=== PATIENT | male | born 1995 | race Two or more races ===

== ENCOUNTER 2018-03-20 04:27 | Emergency (ER) | payer BC ==
[~2018-03-20] VITALS: Ht 185.4 cm; Wt 90.7 kg
[2018-03-20] MEDS ORDERED: LORazepam Inj 2mg/ml 1ml IV ONE (05:00)
--- NOTE | 2018-03-20 05:29 | Emergency Room Report ---
History of Present Illness General Chief Complaint: Overdose Source: Patient Present Illness HPI 22-year-old male with history of HIV reports feeling shortness of breath and restlessness since using methamphetamines last night He denies use of any other drugs, and denies traumatic injuries Allergies: Coded Allergies: No Known Allergies (Unverified , 03/20/18) Patient History Past Medical History: see triage record Reviewed Nursing Documentation: PMH: Agreed; PSxH: Agreed Review of Systems All Other Systems: negative except mentioned in HPI Physical Exam Vital Signs Date Time Temp Pulse Resp B/P (MAP) Pulse Ox O2 Delivery O2 Flow Rate FiO2 03/20/18 04:28 98.3 144 18 148/68 98 Room Air 98.2 Sp02 EP Interpretation: reviewed, normal - Pulse ox normal, but patient tachycardic General Appearance: no apparent distress, alert, mild distress Head: normocephalic Eyes: bilateral eye normal inspection, bilateral eye PERRL, bilateral eye EOMI ENT: normal ENT inspection, hearing grossly normal, normal pharynx, no angioedema, normal voice, moist mucus membranes Neck: normal inspection, full range of motion, supple, supple/symm/no masses Respiratory: chest non-tender, lungs clear, normal breath sounds, chest symmetrical, palpation of chest normal Cardiovascular #1: normal peripheral pulses, regular rate, rhythm, tachycardia Cardiovascular #2: 2+ radial (R), 2+ radial (L) Gastrointestinal: normal inspection, non tender, soft, no mass, no guarding, no rebound Rectal: deferred Genitourinary: normal inspection, no CVA tenderness Musculoskeletal: back normal, gait/station normal, normal range of motion, non- tender, no calf tenderness Neurologic: alert, responsive, river driver III-XII nml as tested, motor strength/tone normal, sensory intact, speech normal Psychiatric: mood/affect normal - Agitated, anxious Skin: normal color, no rash, warm/dry, normal turgor Lymphatic: no adenopathy Medical Decision Making Diagnostic Impression: Primary Impression: Drug overdose ER Course 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 His CPK is over 5000, but he has normal renal function and although still high, is AAOx4 and cooperative. He received 2mg IV ativan, followed by 1 L of NSS, will also get a 2nd dose of 1mg IV ativan, another liter of NSS, and be dc'd home. EKG Diagnostic Results EKG Time: 04:50 EP Interpretation: No ST-T segment changes no T-wave inversions Rate: tachycardiac Rhythm: NSR ST Segments: no acute changes Rhythm Strip Diag. Results Rhythm Strip Time: 05:28 Rate: 114 Rhythm: NSR, no PVC's, no ectopy Last Vital Signs Date Time Temp Pulse Resp B/P (MAP) Pulse Ox O2 Delivery O2 Flow Rate FiO2 18 04:28 98.3 144 18 148/68 98 Room Air 98.2 Disposition: HOME, SELF-CARE Condition: Stable Referrals: NOT CHOSEN IPA/,REFERRING (PCP) FATOUMATA GIFFORD M.D March 20, 2018 05:29
[2018-03-20 06:02] LABS: BASOPHILS % (AUTO) 0.7 % (0.0-2.0); EOSINOPHILS % (AUTO) 0.1 % (0.0-3.0); HEMATOCRIT 44.7 % (42.0-52.0); LYMPHOCYTES % (AUTO) 19.7 % (20.0-45.0); MEAN CORPUSCULAR VOLUME 87 FL (80-99); MONOCYTES % (AUTO) 6.6 % (1.0-10.0); NEUTROPHILS % (AUTO) 72.8 % (45.0-75.0); PLATELET COUNT 240 K/UL (150-450); RED BLOOD COUNT 5.16 M/UL (4.70-6.10); RED CELL DISTRIBUTION WIDTH 9.8 % (11.6-14.8); WHITE BLOOD COUNT 10.1 K/UL (4.8-10.8)
[2018-03-20 06:07] LABS: ANION GAP 21 mmol/L (5-15); BLOOD UREA NITROGEN 26 mg/dL (7-18); CALCIUM 9.6 MG/DL (8.5-10.1); CARBON DIOXIDE 19 MMOL/L (21-32); CHLORIDE 99 MMOL/L (98-107); CREATININE 1.2 MG/DL (0.55-1.30); POTASSIUM 3.7 MMOL/L (3.5-5.1); SODIUM 139 MMOL/L (136-145)
[2018-03-20 06:18] VITALS: BP 134/66
[2018-03-20 06:20] LABS: ALANINE AMINOTRANSFERASE 117 U/L (12-78); ALBUMIN 4.6 G/DL (3.4-5.0); ALKALINE PHOSPHATASE 91 U/L (46-116); ASPARTATE AMINO TRANSFERASE 189 U/L (15-37); BILIRUBIN,TOTAL 1.2 MG/DL (0.2-1.0); CREATINE KINASE 5717 U/L (26-308)
[2018-03-20 06:22] LABS: BILIRUBIN,DIRECT 0.2 MG/DL (0.0-0.3)
[2018-03-20] MEDS ORDERED: LORazepam Inj 2mg/ml 1ml IV SCH (06:30)
[2018-03-20 08:54] VITALS: BP 132/74
[2018-03-20 10:54] VITALS: BP 124/70
--- NOTE | 2018-03-21 12:46 | Cardiology Report ---
APPROVED REPORT EKG Measurement Heart [id number] GA [id number] Sinus tachycardia Possible Left atrial enlargement Cannot rule out Anterior infarct, age undetermined Abnormal ECG
== END 2018-03-20 10:56 | disposition home or self-care (01) ==
LOC: EDBD 04:27 → EMR 04:44
DX: T43.623A Poisoning by amphetamines, assault, initial encounter (principal); R06.02 Shortness of breath; Y92.9 Unspecified place or not applicable
CPT/HCPCS: 36415; 80053; 82248; 82550; 85025; 93005; 96374; 96375; 99284; G0480; 80329